=== PATIENT | male | born 1975 | race Caucasian/White ===

== ENCOUNTER 2016-03-30 18:23 | Emergency (ER) | payer OTHER ==
[2016-03-30] MEDS ORDERED: HYDROmorphone HCL 1 MG/ML SYRINGE (J1170) As Ordered ONE (19:36)
[2016-03-30] MEDS ORDERED: METHOCARBAMOL 1,000 MG/10 ML VIAL (J2800) As Ordered ONE (19:36)
--- NOTE | 2016-03-30 20:20 | REPUSA ---
CT of the lumbar spine without contrast Clinical history: Pain.Trauma. Technique: Multiple axial CT images were obtained through the lumbar spine without administration of contrast. Coronal and sagittal 3-D reconstructed images were also obtained. Findings: The lumbar vertebral bodies are in satisfactory positioning and alignment. No fractures or dislocatio ns are demonstrated. Intervertebral disc spaces are well-maintained. There is no evidence of facet domínguez bluxation. The neural foramen appear grossly patent. The spinal canal demonstrates normal caliber and contour without evidence of spinal stenosis. The surrounding soft tissues are within normal limits. Impression: Unremarkable CT examination of the lumbar spine.
[2016-03-30] MEDS ORDERED: KETOROLAC TROMETHAMINE 10 MG TAB As Ordered ONE (20:36)
--- NOTE | 2016-03-30 20:47 | EDDOCDS ---
Nurse's Notes [facility] Name: Jaime Diaz Age: 40 yrs Sex: Male : 1975 Arrival Date: 03/30/2016 Time: 18:23 Bed I7 / 29 Private MD: NO PRIMARY PHYSICIAN, . 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 Went home and laid down and when pt went to get up, he was unable to walk. Acute neurological deficits are not present. Mechanism of Injury: Lifting. Adult Sepsis Screening: The patient does not have new or worsening altered mentation. Patient's respiratory rate is less than 22. Systolic blood pressure is greater than 100. Patient has a qSOFA score of 0- Negative Sepsis Screen. Suicide/Homicide risk assessment- the patient denies having any suicidal and/or homicidal ideations and does not present with any other emotional, behavioral or mental health complaints. Status: Patient is not a director professional services or dependent. Transition of care: patient was not received from another setting of care. 18:27 Acuity: ESTRELLITA Level 4 jo3 18:27 Method Of Arrival: Walkin/Carried/Asstd jo3 Triage Assessment: 18:30 General: Appears in no apparent distress, comfortable, Behavior is appropriate for age, jo3 cooperative, pleasant. Pain: Pain currently is 5 out of 10 on a pain scale. At worst was 10 out of 10 on a pain scale. HIV screening NA for this visit Offered previously. Neurological: Level of Consciousness is awake, alert, Oriented to person, place, time. Respiratory: Airway is patent Respiratory effort is even, unlabored. Derm: Skin Skin is pink, warm & dry. Historical: - Allergies: No known drug Allergies; - Home Meds: 1. albuterol sulfate 90 mcg/actuation Inhl HFAA 1 puff every 4 hours - PMHx: Asthma; - PSHx: hernia repair; - Social history: No barriers to communication noted, The patient speaks fluent Bhutanese, Speaks appropriately for age, Smoking status: Patient uses tobacco products, heavy tobacco smoker. - Family history: Not pertinent. - : The pt / caregiver states he / she is not on anticoagulants. Home medication list is obtained from the patient. - Exposure Risk Screening:: None identified. Screenin:16 Screening information is obtained from the patient. Fall risk: No risks identified. ms2 Assistance ADL's: requires no assistance with activities of daily living. Abuse/DV Screen: The patient / caregiver reports he/she is: not in a situation that causes fear, pain or injury. Nutritional screening: No deficits noted. Advance Directives: Currently, there is a health care proxy, sister-donnell larry. There is no active DNR order. There is no living will. There is no Power of Physical Education Department Chair. Advance directive information does not know if advance directives have been placed in a prior [facility] medical record. Further advance directive information is declined. home support is adequate. Assessment: 19:13 General: Appears in no apparent distress, in a w/c . Behavior is cooperative. Pain: ms2 Pain currently is 5 out of 10 on a pain scale. Neurological: Level of Consciousness is awake, alert, obeys commands. Respiratory: No deficits noted. Airway is patent Respiratory effort is even, unlabored, Respiratory pattern is regular, symmetrical. GI: Abdomen is flat, non- distended. Derm: Skin is pink, warm & dry. Musculoskeletal: Range of motion intact in all extremities. pain low back and radiates down right leg---worse when stands and ambulates. 20:43 General: Appears in no apparent distress, Behavior is cooperative. Pain: Pain currently ld5 is 3 out of 10 on a pain scale. Neurological: Level of Consciousness is awake, alert. Respiratory: Airway is patent Respiratory effort is even, unlabored. Vital Signs: 18:24 BP 117 / 74; Pulse 111; Resp 20; Temp 97.6(O); Pulse Ox 99% on R/A; Weight 99.79 kg elp (R); Height 5 ft. 11 in. (180.34 cm) (R); Pain 10/10; 20:39 BP 138 / 87; Pulse 95; Resp 18; Temp 98.3; Pulse Ox 97% ; Pain 5/10; ms18 18:24 Body Mass Index 30.68 (99.79 kg, 180.34 cm) [facility] Vitals: 18:24 Log In Time: March 30, 2016 at 18:22. [facility] ED Course: 18:24 Patient visited by Nidhi Mackey PCA. [facility] 18:24 NO PRIMARY PHYSICIAN, . is Private Physician. elp 18:24 Patient moved to Waiting elp 18:25 Patient moved to Pre RCE elp 18:29 Triage Initiated jo3 18:31 Patient visited by Tabitha Foss RN. jo3 19:10 Patient moved to Triage 2 jo3 19:13 [facility] cc[facility] 19:13 Ramon Hoang DO is Attending Physician. cc10 19:13 Patient visited by Renny Renee RN. ms2 19:16 The patient / caregiver is instructed regarding the plan of care and ED course. ms2 19:16 No IV's were initiated during this patient's visit. No procedures done that require ms2 assistance. 19:18 Patient visited by Oliverio Dennis PA-C. cc10 19:18 Patient visited by Oliverio Dennis PA-C. cc10 19:40 Patient moved to I ct3 20:24 [facility] Payment Agreement was scanned into [employer] and attached to record. gjb 20:36 Patient name changed from Jaime\S\Rohit\S\Gerstenschlager\S\ to Jaime\S\ \S\Gerstenschlager. EDMS 20:39 Patient has correct armband on for positive identification. Bed in low position. Call ms18 light in reach. Property sent home with patient. :Personal belongings accompany Pt. 20:45 Patient visited by Piper Kay RN. ld5 Administered Medications: 19:48 Drug: Dilaudid - HYDROmorphone 1 mg [hydromorphone 1 mg/mL injection syringe (1 mL)] jo3 Route: IM; Site: left deltoid; 20:43 Follow up: Response: Confirmed pt not driving.; Pain is decreased ld5 19:51 Drug: Robaxin 500 mg [Robaxin 100 mg/mL injection solution (5 mL)] Route: IM; Site: jo3 left gluteus; 20:42 Follow up: Response: Confirmed pt not driving.; Pain is decreased ld5 20:42 Drug: ketorolac 10 mg [ketorolac 10 mg tablet (1 tabs)] Route: PO; ld5 Order Results: There are currently no results for this order. Outcome: 20:35 Discharge ordered by Provider. cc10 20:43 Discharge Assessment: Patient awake, alert and oriented x 3. No cognitive and/or ld5 functional deficits noted. Patient verbalized understanding of disposition instructions. patient administered narcotics - yes. Pt provided with safe discharge. The following High Risk Discharge criteria are identified: None. Discharged to home with family. Condition: stable. Discharge instructions given to patient, Instructed on discharge instructions, follow up and referral plans. medication usage, no driving heavy equipment, Demonstrated understanding of instructions, medications, Pt was receptive of discharge instructions/ teaching. Prescriptions given X 3, Work note provided to patient. CT Study completed. 20:46 Patient left the ED. ld5 Signatures: Dispatcher [employer] EDMS Renny Renee,RN RN ms2 Tabitha Foss RN RN andrea3 Piper Kay RN RN ld5 Domi Lujan, HAND II THERMAL CUTTER HAND II THERMAL CUTTER ct3 Nidhi Mackey, HAND II THERMAL CUTTER HAND II THERMAL CUTTER elp Oliverio Dennis, PA-C PA-C cc10 Estrella AkhtarRN RN ms18 Randi Nunez MTDD
--- NOTE | 2016-03-30 20:47 | EDDOCDS ---
Physician Documentation [facility] Name: Jaime Diaz Age: 40 yrs Sex: Male : 1975 Arrival Date: 03/30/2016 Time: 18:23 Bed I7 29 Private MD: NO PRIMARY PHYSICIAN, . Disposition: 03/30/16 20:35 Discharged to Home/Self Care. Impression: Low back pain - mechanical. - Condition is Stable. - Discharge Instructions: Back Pain, Adult. - Prescriptions for Naprosyn 500 mg Oral Tablet - take 1 tablet by ORAL route 2 times per day take with food; 30 tablet. [place] 5- 325 mg Oral Tablet - take 1 tablet by ORAL route every 6 hours As needed MDD: 4 tabs; 16 tablet. Cyclobenzaprine 10 mg Oral Tablet - take 1 tablet by ORAL route 3 times per day As needed; 15 tablet. - Work Release Form - 3 day, Medication Reconciliation, Local Pharmacy Hours form. - Follow up: Emergency Department; When: As needed. Follow up: Private Physician; When: 4 - 5 days; Reason: Wound/Symptom Recheck, Recheck today's complaints, Worsening of conditions, Continuance of care. - Problem is an acute exacerbation. - Symptoms have improved. Historical: - Allergies: No known drug Allergies; - Home Meds: 1. albuterol sulfate 90 mcg/actuation Inhl HFAA 1 puff every 4 hours - PMHx: Asthma; - PSHx: hernia repair; - Social history: No barriers to communication noted, The patient speaks fluent Tunisian, Speaks appropriately for age, Smoking status: Patient uses tobacco products, heavy tobacco smoker. - Family history: Not pertinent. - : The pt / caregiver states he / she is not on anticoagulants. Home medication list is obtained from the patient. - Exposure Risk Screening:: None identified. Vital Signs: 03/30 18:24 BP 117 / 74; Pulse 111; Resp 20; Temp 97.6(O); Pulse Ox 99% on R/A; Weight 99.79 kg / elp 220 lbs (R); Height 5 ft. 11 in. (180.34 cm) (R); Pain 10/10; 20:39 BP 138 / 87; Pulse 95; Resp 18; Temp 98.3; Pulse Ox 97% ; Pain 5/10; ms18 18:24 Body Mass Index 30.68 (99.79 kg, 180.34 cm) elp MDM: 19:31 Dilaudid - HYDROmorphone 1 mg IM once ordered. cc10 19:31 Robaxin 500 mg IM once ordered. cc10 19:35 CT Spine, Lumbar W/o Contrast Ordered. EDMS 20:15 Financial registration complete. gjb 20:24 [facility] Payment Agreement was scanned into [employer] and attached to record. gjb 20:35 ketorolac 10 mg PO once ordered. cc10 Administered Medications: 19:48 Drug: Dilaudid - HYDROmorphone 1 mg [hydromorphone 1 mg/mL injection syringe (1 mL)] jo3 Route: IM; Site: left deltoid; 20:43 Follow up: Response: Confirmed pt not driving.; Pain is decreased ld5 19:51 Drug: Robaxin 500 mg [Robaxin 100 mg/mL injection solution (5 mL)] Route: IM; Site: jo3 left gluteus; 20:42 Follow up: Response: Confirmed pt not driving.; Pain is decreased ld5 20:42 Drug: ketorolac 10 mg [ketorolac 10 mg tablet (1 tabs)] Route: PO; ld5 Signatures: Dispatcher [employer] EDPR Tabitha Foss RN RN jo3 Piper Kay RN RN ld5 Oliverio Dennis, PAJuancarlos PAJuancarlos cc10 Randi Nunez The chart was reviewed and I authenticate all verbal orders and agree with the evaluation and treatment provided.Attachments: 20:24 [facility] Payment Agreement gjb MTDD
--- NOTE | 2016-04-01 21:47 | EDDOCDS ---
Physician Documentation [facility] Name: Jaime Diaz Age: 40 yrs Sex: Male : 1975 Arrival Date: 03/30/2016 Time: 18:23 Bed I7 29 Private MD: NO PRIMARY PHYSICIAN, . Disposition: 03/30/16 20:35 Discharged to Home/Self Care. Impression: Low back pain - mechanical. - Condition is Stable. - Discharge Instructions: Back Pain, Adult. - Prescriptions for Naprosyn 500 mg Oral Tablet - take 1 tablet by ORAL route 2 times per day take with food; 30 tablet. [place] 5- 325 mg Oral Tablet - take 1 tablet by ORAL route every 6 hours As needed MDD: 4 tabs; 16 tablet. Cyclobenzaprine 10 mg Oral Tablet - take 1 tablet by ORAL route 3 times per day As needed; 15 tablet. - Work Release Form - 3 day, Medication Reconciliation, Local Pharmacy Hours form. - Follow up: Emergency Department; When: As needed. Follow up: Private Physician; When: 4 - 5 days; Reason: Wound/Symptom Recheck, Recheck today's complaints, Worsening of conditions, Continuance of care. - Problem is an acute exacerbation. - Symptoms have improved. Historical: - Allergies: No known drug Allergies; - Home Meds: 1. albuterol sulfate 90 mcg/actuation Inhl HFAA 1 puff every 4 hours - PMHx: Asthma; - PSHx: hernia repair; - Social history: No barriers to communication noted, The patient speaks fluent Swiss, Speaks appropriately for age, Smoking status: Patient uses tobacco products, heavy tobacco smoker. - Family history: Not pertinent. - : The pt / caregiver states he / she is not on anticoagulants. Home medication list is obtained from the patient. - Exposure Risk Screening:: None identified. Vital Signs: 03/30 18:24 BP 117 / 74; Pulse 111; Resp 20; Temp 97.6(O); Pulse Ox 99% on R/A; Weight 99.79 kg / elp 220 lbs (R); Height 5 ft. 11 in. (180.34 cm) (R); Pain 10/10; 20:39 BP 138 / 87; Pulse 95; Resp 18; Temp 98.3; Pulse Ox 97% ; Pain 5/10; ms18 18:24 Body Mass Index 30.68 (99.79 kg, 180.34 cm) elp MDM: 19:31 Dilaudid - HYDROmorphone 1 mg IM once ordered. cc10 19:31 Robaxin 500 mg IM once ordered. cc10 19:35 CT Spine, Lumbar W/o Contrast Ordered. EDMS 20:15 Financial registration complete. gjb 20:24 [facility] [place] Agreement was scanned into [employer] and attached to record. gjb 20:35 ketorolac 10 mg PO once ordered. cc10 03/31 10:34 T-Sheet-- Draft Copy was scanned into [employer] and attached to record. gb 10:35 Radiology Report was scanned into [employer] and attached to record. gb Administered Medications: 03/30 19:48 Drug: Dilaudid - HYDROmorphone 1 mg [hydromorphone 1 mg/mL injection syringe (1 mL)] jo3 Route: IM; Site: left deltoid; 20:43 Follow up: Response: Confirmed pt not driving.; Pain is decreased ld5 19:51 Drug: Robaxin 500 mg [Robaxin 100 mg/mL injection solution (5 mL)] Route: IM; Site: jo3 left gluteus; 20:42 Follow up: Response: Confirmed pt not driving.; Pain is decreased ld5 20:42 Drug: ketorolac 10 mg [ketorolac 10 mg tablet (1 tabs)] Route: PO; ld5 Signatures: Dispatcher [employer] EDNC Radha Youngblood, Antoine Schultz gb Tabitha Foss RN RN jo3 Piper Kay RN RN ld5 Oliverio Dennis PA-C PA-C cc10 Beck, Gabriela gjb The chart was reviewed and I authenticate all verbal orders and agree with the evaluation and treatment provided.Attachments: 20:24 [facility] [place] Agreement gjb 03/31 10:34 T-Sheet-- Draft Copy gb Chart Complete MTDD
--- NOTE | 2016-04-01 21:47 | EDDOCDS ---
Nurse's Notes [facility] Name: Jaime Diaz Age: 40 yrs Sex: Male : 1975 Arrival Date: 03/30/2016 Time: 18:23 Bed I7 / 29 Private MD: NO PRIMARY PHYSICIAN, . 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 Went home and laid down and when pt went to get up, he was unable to walk. Acute neurological deficits are not present. Mechanism of Injury: Lifting. Adult Sepsis Screening: The patient does not have new or worsening altered mentation. Patient's respiratory rate is less than 22. Systolic blood pressure is greater than 100. Patient has a qSOFA score of 0- Negative Sepsis Screen. Suicide/Homicide risk assessment- the patient denies having any suicidal and/or homicidal ideations and does not present with any other emotional, behavioral or mental health complaints. Status: Patient is not a office services specialist or dependent. Transition of care: patient was not received from another setting of care. 18:27 Acuity: ESTRELLITA Level 4 jo3 18:27 Method Of Arrival: Walkin/Carried/Asstd jo3 Triage Assessment: 18:30 General: Appears in no apparent distress, comfortable, Behavior is appropriate for age, jo3 cooperative, pleasant. Pain: Pain currently is 5 out of 10 on a pain scale. At worst was 10 out of 10 on a pain scale. HIV screening NA for this visit Offered previously. Neurological: Level of Consciousness is awake, alert, Oriented to person, place, time. Respiratory: Airway is patent Respiratory effort is even, unlabored. Derm: Skin Skin is pink, warm & dry. Historical: - Allergies: No known drug Allergies; - Home Meds: 1. albuterol sulfate 90 mcg/actuation Inhl HFAA 1 puff every 4 hours - PMHx: Asthma; - PSHx: hernia repair; - Social history: No barriers to communication noted, The patient speaks fluent Tunisian, Speaks appropriately for age, Smoking status: Patient uses tobacco products, heavy tobacco smoker. - Family history: Not pertinent. - : The pt / caregiver states he / she is not on anticoagulants. Home medication list is obtained from the patient. - Exposure Risk Screening:: None identified. Screenin:16 Screening information is obtained from the patient. Fall risk: No risks identified. ms2 Assistance ADL's: requires no assistance with activities of daily living. Abuse/DV Screen: The patient / caregiver reports he/she is: not in a situation that causes fear, pain or injury. Nutritional screening: No deficits noted. Advance Directives: Currently, there is a health care proxy, sister-donnell larry. There is no active DNR order. There is no living will. There is no Power of Setter Induction Heating Equipment. Advance directive information does not know if advance directives have been placed in a prior [facility] medical record. Further advance directive information is declined. home support is adequate. Assessment: 19:13 General: Appears in no apparent distress, in a w/c . Behavior is cooperative. Pain: ms2 Pain currently is 5 out of 10 on a pain scale. Neurological: Level of Consciousness is awake, alert, obeys commands. Respiratory: No deficits noted. Airway is patent Respiratory effort is even, unlabored, Respiratory pattern is regular, symmetrical. GI: Abdomen is flat, non- distended. Derm: Skin is pink, warm & dry. Musculoskeletal: Range of motion intact in all extremities. pain low back and radiates down right leg---worse when stands and ambulates. 20:43 General: Appears in no apparent distress, Behavior is cooperative. Pain: Pain currently ld5 is 3 out of 10 on a pain scale. Neurological: Level of Consciousness is awake, alert. Respiratory: Airway is patent Respiratory effort is even, unlabored. Vital Signs: 18:24 BP 117 / 74; Pulse 111; Resp 20; Temp 97.6(O); Pulse Ox 99% on R/A; Weight 99.79 kg elp (R); Height 5 ft. 11 in. (180.34 cm) (R); Pain 10/10; 20:39 BP 138 / 87; Pulse 95; Resp 18; Temp 98.3; Pulse Ox 97% ; Pain 5/10; ms18 18:24 Body Mass Index 30.68 (99.79 kg, 180.34 cm) [facility] Vitals: 18:24 Log In Time: March 30, 2016 at 18:22. [facility] ED Course: 18:24 Patient visited by Nidhi Mackey PCA. [facility] 18:24 NO PRIMARY PHYSICIAN, . is Private Physician. elp 18:24 Patient moved to Waiting elp 18:25 Patient moved to Pre RCE elp 18:29 Triage Initiated jo3 18:31 Patient visited by Tabitha Foss RN. jo3 19:10 Patient moved to Triage 2 jo3 19:13 [facility] Dennis [facility]. cc[facility] 19:13 Ramon Hoang DO is Attending Physician. cc10 19:13 Patient visited by Renny Renee RN. ms2 19:16 The patient / caregiver is instructed regarding the plan of care and ED course. ms2 19:16 No IV's were initiated during this patient's visit. No procedures done that require ms2 assistance. 19:18 Patient visited by Oliverio Dennis PA-C. cc10 19:18 Patient visited by Oliverio Dennis PA-C. cc10 19:40 Patient moved to I7 ct3 20:24 [facility] Payment Agreement was scanned into [employer] and attached to record. gjb 20:36 Patient name changed from Jaime\S\Rohit\S\Gerstenschlager\S\ to Jaime\S\ \S\Gerstenschlager. EDMS 20:39 Patient has correct armband on for positive identification. Bed in low position. Call ms18 light in reach. Property sent home with patient. :Personal belongings accompany Pt. 20:45 Patient visited by Piper Kay RN. ld5 21:10 CT Spine, Lumbar W/o Contrast Returned. EDMS 03/31 10:34 T-Sheet-- Draft Copy was scanned into [employer] and attached to record. gb 10:35 Radiology Report was scanned into [employer] and attached to record. gb Administered Medications: 03/30 19:48 Drug: Dilaudid - HYDROmorphone 1 mg [hydromorphone 1 mg/mL injection syringe (1 mL)] jo3 Route: IM; Site: left deltoid; 20:43 Follow up: Response: Confirmed pt not driving.; Pain is decreased ld5 19:51 Drug: Robaxin 500 mg [Robaxin 100 mg/mL injection solution (5 mL)] Route: IM; Site: jo3 left gluteus; 20:42 Follow up: Response: Confirmed pt not driving.; Pain is decreased ld5 20:42 Drug: ketorolac 10 mg [ketorolac 10 mg tablet (1 tabs)] Route: PO; ld5 Order Results: Radiology Order: CT Spine, Lumbar W/o Contrast Test: CT Spine, Lumbar W/o Contrast REASON FOR EXAMINATION: Trauma; ; CT of the lumbar spine without contrast; Clinical history: Pain.Trauma.; Technique: Multiple axial CT images were obtained through the lumbar spine without administration of; contrast. Coronal and sagittal 3-D reconstructed images were also obtained.; Findings:; The lumbar vertebral bodies are in satisfactory positioning and alignment. No fractures or dislocatio; ns are demonstrated. Intervertebral disc spaces are well-maintained. There is no evidence of facet domínguez; bluxation. The neural foramen appear grossly patent. The spinal canal demonstrates normal caliber and; contour without evidence of spinal stenosis. The surrounding soft tissues are within normal limits.; Impression: Unremarkable CT examination of the lumbar spine.; ; Outcome: 20:35 Discharge ordered by Provider. cc10 20:43 Discharge Assessment: Patient awake, alert and oriented x 3. No cognitive and/or ld5 functional deficits noted. Patient verbalized understanding of disposition instructions. patient administered narcotics - yes. Pt provided with safe discharge. The following High Risk Discharge criteria are identified: None. Discharged to home with family. Condition: stable. Discharge instructions given to patient, Instructed on discharge instructions, follow up and referral plans. medication usage, no driving heavy equipment, Demonstrated understanding of instructions, medications, Pt was receptive of discharge instructions/ teaching. Prescriptions given X 3, Work note provided to patient. CT Study completed. 20:46 Patient left the ED. ld5 Signatures: Dispatcher [employer] EDMS Renny ReneeRN RN ms2 Radha Youngblood, Reg Reg Tabitha Muñoz RN RN jo3 Dickerson, Laura, RN RN ld5 Domi Lujan, YARN BLEACHING MACHINE OPERATOR YARN BLEACHING MACHINE OPERATOR ct3 Narendra, Nidhi, YARN BLEACHING MACHINE OPERATOR YARN BLEACHING MACHINE OPERATOR elp Oliverio Dennis, PA-C PA-C cc10 Estrella Akhtar RN RN ms18 Randi Nunez Chart Complete MTDD
--- NOTE | 2016-04-01 21:47 | EDDOCDS ---
Physician Documentation [facility] Name: Jaime Diaz Age: 40 yrs Sex: Male : 1975 Arrival Date: 03/30/2016 Time: 18:23 Bed I7 29 Private MD: NO PRIMARY PHYSICIAN, . Disposition: 03/30/16 20:35 Discharged to Home/Self Care. Impression: Low back pain - mechanical. - Condition is Stable. - Discharge Instructions: Back Pain, Adult. - Prescriptions for Naprosyn 500 mg Oral Tablet - take 1 tablet by ORAL route 2 times per day take with food; 30 tablet. [place] 5- 325 mg Oral Tablet - take 1 tablet by ORAL route every 6 hours As needed MDD: 4 tabs; 16 tablet. Cyclobenzaprine 10 mg Oral Tablet - take 1 tablet by ORAL route 3 times per day As needed; 15 tablet. - Work Release Form - 3 day, Medication Reconciliation, Local Pharmacy Hours form. - Follow up: Emergency Department; When: As needed. Follow up: Private Physician; When: 4 - 5 days; Reason: Wound/Symptom Recheck, Recheck today's complaints, Worsening of conditions, Continuance of care. - Problem is an acute exacerbation. - Symptoms have improved. Historical: - Allergies: No known drug Allergies; - Home Meds: 1. albuterol sulfate 90 mcg/actuation Inhl HFAA 1 puff every 4 hours - PMHx: Asthma; - PSHx: hernia repair; - Social history: No barriers to communication noted, The patient speaks fluent [place], Speaks appropriately for age, Smoking status: Patient uses tobacco products, heavy tobacco smoker. - Family history: Not pertinent. - : The pt / caregiver states he / she is not on anticoagulants. Home medication list is obtained from the patient. - Exposure Risk Screening:: None identified. Vital Signs: 03/30 18:24 BP 117 / 74; Pulse 111; Resp 20; Temp 97.6(O); Pulse Ox 99% on R/A; Weight 99.79 kg / elp 220 lbs (R); Height 5 ft. 11 in. (180.34 cm) (R); Pain 10/10; 20:39 BP 138 / 87; Pulse 95; Resp 18; Temp 98.3; Pulse Ox 97% ; Pain 5/10; ms18 18:24 Body Mass Index 30.68 (99.79 kg, 180.34 cm) elp MDM: 19:31 Dilaudid - HYDROmorphone 1 mg IM once ordered. cc10 19:31 Robaxin 500 mg IM once ordered. cc10 19:35 CT Spine, Lumbar W/o Contrast Ordered. EDMS 20:15 Financial registration complete. gjb 20:24 [facility] Payment Agreement was scanned into [employer] and attached to record. gjb 20:35 ketorolac 10 mg PO once ordered. cc10 03/31 10:34 T-Sheet-- Draft Copy was scanned into [employer] and attached to record. gb 10:35 Radiology Report was scanned into [employer] and attached to record. gb Administered Medications: 03/30 19:48 Drug: Dilaudid - HYDROmorphone 1 mg [hydromorphone 1 mg/mL injection syringe (1 mL)] jo3 Route: IM; Site: left deltoid; 20:43 Follow up: Response: Confirmed pt not driving.; Pain is decreased ld5 19:51 Drug: Robaxin 500 mg [Robaxin 100 mg/mL injection solution (5 mL)] Route: IM; Site: jo3 left gluteus; 20:42 Follow up: Response: Confirmed pt not driving.; Pain is decreased ld5 20:42 Drug: ketorolac 10 mg [ketorolac 10 mg tablet (1 tabs)] Route: PO; ld5 Signatures: Dispatcher [employer] EDNY Radha Youngblood, Antoine Schultz gb Tabitha Foss RN RN jo3 Piper Kay RN RN ld5 Oliverio Dennis PA-C PA-C cc10 Beck, Gabriela gjb The chart was reviewed and I authenticate all verbal orders and agree with the evaluation and treatment provided.Attachments: 20:24 [facility] Payment Agreement gjb 03/31 10:34 T-Sheet-- Draft Copy gb Chart Complete MTDD
== END 2016-03-30 20:46 | disposition home or self-care (01) ==
LOC: M ED 18:23
DX: M54.5 Low back pain (principal); J45.909 Unspecified asthma, uncomplicated; Z79.899 Other long term (current) drug therapy; F17.210 Nicotine dependence, cigarettes, uncomplicated
CPT/HCPCS: 72131; 96372; 99284; J1170; J2800

== ENCOUNTER 2018-08-08 05:57 | Emergency (ER) | payer OTHER ==
[~2018-08-08] VITALS: Ht 180.3 cm; Wt 110.4 kg
[2018-08-08] MEDS ORDERED: METO1TAB87 PO (06:01)
[2018-08-08] MEDS ORDERED: OMEP40CA2 PO (06:01)
[2018-08-08] MEDS ORDERED: ASPIRIN 81 MG CHEW TABLET PO ONE (07:00)
[2018-08-08 07:07] LABS: BASO % 0.5 % (0.0-1.0); EOS # 0.2 10^3/uL (0.0-0.50); EOS % 1.9 % (0.0-3.0); HEMATOCRIT 45.7 % (42.0-52.0); HEMOGLOBIN 14.9 g/dl (13.5-17.5); LYMPH # 2.2 10^3/uL (1.5-4.5); LYMPH % 27.2 % (24.0-44.0); MEAN CORPUSCULAR HEMOGLOBIN 30.7 pg (27.0-33.0); MEAN CORPUSCULAR HGB CONC 32.6 g/dl (32.0-36.5); MONO # 0.5 10^3/uL (0.0-0.8); MONO % 5.8 % (0.0-5.0); NEUTROPHILS # 5.1 10^3/uL (1.8-7.7); NEUTROPHILS % 64.2 % (36.0-66.0); PLATELET COUNT, AUTOMATED 211 10^3/uL (150-450); RED BLOOD COUNT 4.86 10^6/uL (4.30-6.10)
[2018-08-08 07:35] LABS: ALBUMIN 3.7 GM/DL (3.2-5.2); ALT/SGPT 47 U/L (12-78); BILIRUBIN,DIRECT 0.2 MG/DL (0.0-0.2); BILIRUBIN,TOTAL 0.8 MG/DL (0.2-1.0); BLOOD UREA NITROGEN 13 MG/DL (7-18); CALCIUM LEVEL 8.8 MG/DL (8.5-10.1); CARBON DIOXIDE LEVEL 27 MEQ/L (21-32); CHLORIDE LEVEL 107 MEQ/L (98-107); CK-MB VALUE MASS 2.1 NG/ML (<3.6); CPK CREATINE PHOSPHOKINASE 291 U/L (39-308); CREATININE FOR GFR 1.06 MG/DL (0.70-1.30); GLOMERULAR FILTRATION RATE > 60.0 (>60); GLUCOSE, FASTING 168 MG/DL (70-100); LIPASE 87 U/L (73-393); MB/CK RELATIVE INDEX 0.72 (< OR =4); POTASSIUM SERUM 4.1 MEQ/L (3.5-5.1); SODIUM LEVEL 144 MEQ/L (136-145); TOTAL PROTEIN 6.7 GM/DL (6.4-8.2); TROPONIN I < 0.02 NG/ML (< 0.10)
[2018-08-08] MEDS ORDERED: ISOVUE-370 76% 100ML VIAL (Q9967) As Ordered ONE (08:19)
--- NOTE | 2018-08-08 08:21 | REP ---
PORTABLE CHEST, SINGLE VIEW: There is no evidence of acute infiltrate. No pleural effusion is seen. The heart is normal in size. The mediastinal silhouette is unremarkable. The visualized osseous structures are intact. IMPRESSION: No acute pulmonary disease. Electronically Signed by Reji Sutherland MD 08/08/2018 04:30 P
[2018-08-08] MEDS: NITROGLYCERIN 0.4 MG SUBL TABLET SL PRN ×3 (08:46→08:57)
[2018-08-08 08:57] VITALS: BP 131/72
[2018-08-08] MEDS ORDERED: ACETAMINOPHEN 325 MG TAB As Ordered ONE (08:59)
[2018-08-08] MEDS ORDERED: ACETAMINOPHEN TAB 650MG DOSE (2X325MG) PO ONE (09:00)
--- NOTE | 2018-08-08 09:06 | REP ---
CT ANGIOGRAM CHEST: TECHNIQUE: Axial contrast enhanced images from the thoracic inlet to the upper abdomen using 100 mL Isovue 370 intravenous contrast material with multiplanar reformations. There is no CT evidence of pulmonary embolism. There is no thoracic aortic aneurysm or dissection. There is no evidence of significant mediastinal, hilar, or chest wall lymphadenopathy. There is no pleural or pericardial effusion. The heart is normal in size. Biapical bullous change is noted. In the left upper lobe posteriorly, is a 7 mm nodule. A little more inferiorly, anterolaterally in a subpleural location, there is a 5 mm nodular opacity. No infiltrates are seen. There are degenerative changes of the spine. Note is made of diffuse fatty infiltration of the liver. There is a cyst in the upper pole of each kidney. IMPRESSION: No CT evidence of pulmonary embolism or aortic dissection. 7 mm nodule left upper lobe and 5 mm subpleural nodular opacity left upper lobe. Recommend followup CT in 6 months. Electronically Signed by Reji Sutherland MD 08/08/2018 04:33 P
[2018-08-08 12:52] LABS: CK-MB VALUE MASS 2.1 NG/ML (<3.6); CPK CREATINE PHOSPHOKINASE 245 U/L (39-308); MB/CK RELATIVE INDEX 0.86 (< OR =4); TROPONIN I < 0.02 NG/ML (< 0.10)
[2018-08-08] MEDS ORDERED: ASPI81CH33 PO (13:11)
[2018-08-08] MEDS ORDERED: NITR0.4S14 SL (13:14)
[2018-08-08 13:18] VITALS: BP 142/93
--- NOTE | 2018-08-09 08:25 | ED PDOC ---
Post-Departure Follow-Up ro bullock faxed formal report of cta chest for fu Inessa Calderon MD Aug 09, 2018 08:25
--- NOTE | 2018-08-09 13:09 | ECGEPIP ---
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
--- NOTE | 2018-08-09 13:13 | ECGEPIP ---
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
== END 2018-08-08 13:24 | disposition home or self-care (01) ==
LOC: M ED 05:57
DX: R91.1 Solitary pulmonary nodule (principal); R07.89 Other chest pain; I45.19 Other right bundle-branch block; I10 Essential (primary) hypertension; F41.9 Anxiety disorder, unspecified; K27.9 Peptic ulcer, site unspecified, unspecified as acute or chronic, without hemorrhage or perforation; J30.89 Other allergic rhinitis; Z79.899 Other long term (current) drug therapy; Z79.84 Long term (current) use of oral hypoglycemic drugs; Z79.82 Long term (current) use of aspirin; F17.210 Nicotine dependence, cigarettes, uncomplicated
CPT/HCPCS: 36415; 71045; 71275; 80048; 80076; 82550; 82553; 83690; 85025; 93005; 93041; 94760; 99285; Q9967

== ENCOUNTER 2018-08-15 16:49 | Emergency (ER) | payer OTHER ==
[~2018-08-15] VITALS: Ht 180.3 cm; Wt 109.3 kg
[~2018-08-15 16:49] MED LIST: ASPI81CH33 PO; METO1TAB87 PO; NITR0.4S14 SL; OMEP40CA2 PO
[2018-08-15] MEDS ORDERED: PROP40TA62 (16:59)
[2018-08-15] MEDS ORDERED: VITA1CAP25 (16:59)
[2018-08-15] MEDS ORDERED: ATOR1TAB21 (16:59)
[2018-08-15] MEDS ORDERED: VENTAER (16:59)
[2018-08-15] MEDS ORDERED: METF500T4 (16:59)
[2018-08-15 17:29] LABS: BASO # 0.1 10^3/uL (0.0-0.2); BASO % 0.6 % (0.0-1.0); EOS # 0.2 10^3/uL (0.0-0.50); EOS % 1.8 % (0.0-3.0); HEMATOCRIT 46.6 % (42.0-52.0); HEMOGLOBIN 15.4 g/dl (13.5-17.5); LYMPH # 3.3 10^3/uL (1.5-4.5); LYMPH % 34.6 % (24.0-44.0); MEAN CORPUSCULAR HEMOGLOBIN 30.6 pg (27.0-33.0); MEAN CORPUSCULAR VOLUME 92.5 fl (80.0-96.0); MONO # 0.6 10^3/uL (0.0-0.8); MONO % 5.8 % (0.0-5.0); NEUTROPHILS # 5.5 10^3/uL (1.8-7.7); NEUTROPHILS % 56.9 % (36.0-66.0); PLATELET COUNT, AUTOMATED 226 10^3/uL (150-450); RED BLOOD COUNT 5.04 10^6/uL (4.30-6.10); WHITE BLOOD COUNT 9.7 10^3/uL (4.0-10.0)
[2018-08-15] MEDS ORDERED: ASPIRIN 81 MG CHEW TABLET PO ONE (17:30)
[2018-08-15 17:50] LABS: ALBUMIN 4.1 GM/DL (3.2-5.2); ALT/SGPT 38 U/L (12-78); BILIRUBIN,TOTAL 0.7 MG/DL (0.2-1.0); BLOOD UREA NITROGEN 13 MG/DL (7-18); CALCIUM LEVEL 8.9 MG/DL (8.5-10.1); CARBON DIOXIDE LEVEL 26 MEQ/L (21-32); CHLORIDE LEVEL 105 MEQ/L (98-107); CK-MB VALUE MASS 2.3 NG/ML (<3.6); CPK CREATINE PHOSPHOKINASE 311 U/L (39-308); CREATININE FOR GFR 1.07 MG/DL (0.70-1.30); GLOMERULAR FILTRATION RATE > 60.0 (>60); GLUCOSE, FASTING 110 MG/DL (70-100); LIPASE 109 U/L (73-393); MB/CK RELATIVE INDEX 0.74 (< OR =4); POTASSIUM SERUM 4.2 MEQ/L (3.5-5.1); SODIUM LEVEL 141 MEQ/L (136-145); TOTAL PROTEIN 7.3 GM/DL (6.4-8.2); TROPONIN I < 0.02 NG/ML (< 0.10)
--- NOTE | 2018-08-15 18:21 | REP ---
Portable chest x-ray: Single view. History: Chest pain. Comparison study: August 08, 2018. Findings: The lungs are well inflated and clear. The pleural angles are sharp. Heart size is normal. EKG electrodes are seen. Pulmonary vasculature is not increased. No significant bony abnormality is seen. Impression: No active disease. Electronically Signed by Israel Markham MD 08/15/2018 06:11 P
[2018-08-15 20:46] LABS: CK-MB VALUE MASS 1.9 NG/ML (<3.6); CPK CREATINE PHOSPHOKINASE 271 U/L (39-308); TROPONIN I < 0.02 NG/ML (< 0.10)
[2018-08-15 21:01] VITALS: BP 132/76
--- NOTE | 2018-08-15 21:53 | ECGEPIP ---
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
--- NOTE | 2018-08-15 22:01 | ECGEPIP ---
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
== END 2018-08-15 21:05 | disposition home or self-care (01) ==
LOC: M ED 16:49
DX: R07.89 Other chest pain (principal); I10 Essential (primary) hypertension; F41.9 Anxiety disorder, unspecified; K27.9 Peptic ulcer, site unspecified, unspecified as acute or chronic, without hemorrhage or perforation; R91.1 Solitary pulmonary nodule; Z72.0 Tobacco use; Z79.82 Long term (current) use of aspirin; Z79.84 Long term (current) use of oral hypoglycemic drugs; Z79.899 Other long term (current) drug therapy; J30.89 Other allergic rhinitis

== ENCOUNTER → 2018-08-16 | Outpatient (REF) | payer OTHER ==
[~2018-08-16] MED LIST changes: +ATOR1TAB21; +METF500T4; +PROP40TA62; +VENTAER; +VITA1CAP25
[2018-08-16 13:45] LABS: BASO # 0.1 10^3/uL (0.0-0.2); BASO % 0.7 % (0.0-1.0); EOS # 0.1 10^3/uL (0.0-0.50); EOS % 1.4 % (0.0-3.0); HEMATOCRIT 47.2 % (42.0-52.0); HEMOGLOBIN 15.6 g/dl (13.5-17.5); LYMPH # 3.2 10^3/uL (1.5-4.5); LYMPH % 35.3 % (24.0-44.0); MEAN CORPUSCULAR HEMOGLOBIN 30.7 pg (27.0-33.0); MEAN CORPUSCULAR HGB CONC 33.1 g/dl (32.0-36.5); MEAN CORPUSCULAR VOLUME 92.9 fl (80.0-96.0); MONO # 0.6 10^3/uL (0.0-0.8); MONO % 6.3 % (0.0-5.0); NEUTROPHILS # 5.1 10^3/uL (1.8-7.7); NEUTROPHILS % 56.1 % (36.0-66.0); PLATELET COUNT, AUTOMATED 241 10^3/uL (150-450); RED BLOOD COUNT 5.08 10^6/uL (4.30-6.10); WHITE BLOOD COUNT 9.1 10^3/uL (4.0-10.0)
== END ==
LOC: M LAB REF 13:00
PROVIDERS: ATTEND Internal Medicine Pulmonary Disease
DX: J43.9 Emphysema, unspecified (principal); J45.40 Moderate persistent asthma, uncomplicated